=== PATIENT | male | born 1950 | race Caucasian/White ===

== ENCOUNTER 2019-11-10 09:57 | Emergency (ER) | payer OTHER ==
[~2019-11-10] VITALS: Ht 177.8 cm; Wt 86.0 kg
[2019-11-10 09:59] VITALS: BP 204/114
--- NOTE | 2019-11-10 10:44 | NUR ---
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
--- NOTE | 2019-11-10 10:53 | NUR ---
FIRST CONTACT WITH PT. PT STATES "I WAS CARRYING SOME METAL AND SLIPPED AND FELL. I ALMOST CUT OFF THE TIP OF MY FINGER. IT'S MY LEFT FINGER. IT HAPPENED YESTERDAY." NO C/O LOC OR HITTING HEAD BLEEDING CONTROLLED. PT'S AOX4. RESPS EVEN AND UNLABORED.
[2019-11-10] MEDS ORDERED: DIPH,PERTUSS(ACELL),TET VAC/PF 0.5 ML IM-VACC ONE ×2 (11:00→11:01)
[2019-11-10] MEDS ORDERED: BUPIVACAINE 0.25% INFIL ONE (11:00)
[2019-11-10] MEDS ORDERED: LIDOCAINE-MPF 1%, 5ML INFIL ONE (11:00)
[2019-11-10] MEDS ORDERED: BUPIVACAINE 0.25% ONE (11:01)
[2019-11-10] MEDS ORDERED: LIDOCAINE-MPF 1%, 2ML ONE (11:01)
--- NOTE | 2019-11-10 11:21 | NUR ---
TDAP GIVEN AT THIS TIME. PT TOLERATED WELL.
[2019-11-10] MEDS ORDERED: CEPHALEXIN 500 MG CAPSULE ONE (11:44)
--- NOTE | 2019-11-10 11:46 | NUR ---
PT MEDICATED PER EMAR. PT TOLERATED WELL.
[2019-11-10] MEDS ORDERED: CEPHALEXIN 500 MG CAPSULE PO ONE (12:00)
== END 2019-11-10 13:11 | disposition home or self-care (01) ==
LOC: ED 11:11
DX: S61.210A Laceration without foreign body of right index finger without damage to nail, initial encounter (principal); E78.5 Hyperlipidemia, unspecified; E11.9 Type 2 diabetes mellitus without complications; I10 Essential (primary) hypertension; W01.0XXA Fall on same level from slipping, tripping and stumbling without subsequent striking against object, initial encounter; Y93.01 Activity, walking, marching and hiking; Y92.098 Other place in other non-institutional residence as the place of occurrence of the external cause; Y99.8 Other external cause status
CPT/HCPCS: 12042; 90471; 90715; 99284